=== PATIENT | female | born 1990 | race Caucasian/White ===

== ENCOUNTER 2016-08-08 22:05 | Inpatient (IN) | payer OTHER ==
--- NOTE | 2016-08-08 22:18 | HP ---
COWS - Scale Resting Pulse: 1= OK 81-100 Sweatin=Flushed/Facial Moisture Restless Observation: 1= Difficult to Sit Still Pupil Size: 1= Pupils >than Normal Bone or Joint Aches: 1= Mild Discomfort Runny Nose/ Eye Tearin= Nasal Congestion GI Upset > 30mins: 1= Stomach Cramp Tremor Observation: 1= Tremor Oral, Not Seen Yawning Observation: 1= 1-2x During Session Anxiety or Irritability: 2=Irritable/Anxious Goose Flesh Skin: 3=Piloerection COWS Score: 15 CIWA Score - CIWA Score Nausea/Vomitin-Mild Nausea/No Vomiting Muscle Tremors: 2 Anxiety: 3 Agitation: 3 Paroxysmal Sweats: 3 Orientation: 0-Oriented Tacttile Disturbances: 2-Mild Itch/Numbness/Burn Auditory Disturbances: 0-None Visual Disturbances: 0-None Headache: 3-Moderate CIWA-Ar Total Score: 17 Admission ROS BHS - HPI Chief Complaint: WITHDRAWAL SYMPTOMS Allergies/Adverse Reactions: Allergies Allergy/AdvReac Type Severity Reaction Status Date / Time No Known Allergies Allergy Verified 08/08/16 22:15 History of Present Illness: 25 Y.O. WOMAN WITH A 5 YEAR HISTORY OF ALCOHOL AND DRUG DEPENDENCE IS SEEKING DETOX. SHE REPORTS SHE WAS SOBER 16 MONTHS BUT RECENTLY RELAPSED. SHE HAS COMPLETED REHAB AND DETOX AT OTHER FACILITIES. Exam Limitations: No Limitations - Ebola screening Have you traveled outside of the country in the last 21 days: No (N) Have you had contact with anyone from an Ebola affected area: No Do you have a fever: No - Review of Systems Constitutional: Chills, Diaphoresis, Loss of Appetite EENT: reports: Tearing Respiratory: reports: Shortness of Breath (H/O ASTHMA) Cardiac: reports: Lightheadedness GI: reports: Abdominal cramping : reports: No Symptoms Reported Musculoskeletal: reports: Back Pain, Joint Pain, Muscle Weakness Integumentary: reports: No Symptoms Reported Neuro: reports: Headache, Tremors Endocrine: reports: No Symptoms Reported Hematology: reports: No Symptoms Reported Psychiatric: reports: Orientated x3, Anxious, Depressed, other (H/O OCD, ADD, ADHD) Other Systems: Reviewed and Negative Patient History - Patient Medical History Hx Anemia: No Hx Asthma: Yes (NO MEDS ) Hx Chronic Obstructive Pulmonary Disease (COPD): No Hx Cancer: No Hx Cardiac Disorders: No Hx Congestive Heart Failure: No Hx Hypertension: No Hx Hypercholesterolemia: No Hx Pacemaker: No HX Cerebrovascular Accident: No Hx Seizures: No Hx Dementia: No Hx Diabetes: No Hx Gastrointestinal Disorders: No Hx Liver Disease: No Hx Genitourinary Disorders: No Hx Sexually Transmitted Disorders: No Hx Renal Disease (ESRD): No Hx Thyroid Disease: No Hx Human Immunodeficiency Virus (HIV): No Hx Hepatitis C: No Hx Depression: Yes Hx Suicide Attempt: No Hx Bipolar Disorder: No Hx Schizophrenia: No Other Medical History: KIDNEY STONES , ADD, OCD, ADHD - Patient Surgical History Past Surgical History: Yes Hx Cardiac Surgery: No Hx Lung Surgery: No Hx Breast Surgery: No Hx Breast Biopsy: No Hx Abdominal Surgery: No Hx Appendectomy: Yes Hx Cholecystectomy: Yes Hx Genitourinary Surgery: No Hx Section: No Hx Orthopedic Surgery: No Hx Hysterectomy: No Other Surgical History: nephrolithiasis removal sx; Anesthesia Reaction: No - PPD History Previous Implant?: Yes Documented Results: Negative w/o proof PPD to be Administered?: Yes - Reproductive History Patient is a Female of Child Bearing Age (11 -55 yrs old): Yes Last Menstrual Period: 05/18/16 LMP comment: recently had an Patient : No - Smoking Cessation Smoking history: Current every day smoker Have you smoked in the past 12 months: Yes Aproximately how many cigarettes per day: 20 Hx Chewing Tobacco Use: No Initiated information on smoking cessation: Yes 'Breaking Loose' booklet given: 08/08/16 - Substance & Tx. History Hx Alcohol Use: Yes Hx Substance Use: Yes Substance Use Type: Alcohol, Heroin Hx Substance Use Treatment: Yes (DETOX AND REHAB ) - Substances Abused Heroin Route: Inhalation Frequency: Daily Amount used: 2 BUNDLES Age of first use: 20 Date of Last Use: 08/08/16 Alcohol Route: Oral Frequency: Daily Amount used: 12 PACK OF BEER Age of first use: 14 Date of Last Use: 08/08/16 Family Disease History - Family Disease History Family Disease History: Other: Father (SUBSTANCE ABUSE DISORDER ), Mother ( SUBSTANCE ABUSE DISORDER ) Admission Physical Exam BHS - Vital Signs Vital Signs: Last Vital Signs Temp Pulse Resp BP Pulse Ox 98.4 F 97 H 16 118/62 08/08/16 22:41 08/08/16 22:41 08/08/16 22:41 08/08/16 22:41 - Physical General Appearance: Yes: Tremorous, Irritable, Sweating, Anxious HEENTM: Yes: Rhinorrhea Respiratory: Yes: Chest Non-Tender, Lungs Clear, Normal Breath Sounds, No Respiratory Distress, No Accessory Muscle Use Neck: Yes: No masses,lesions,Nodules, Trachea in good position Breast: Yes: Breast Exam Deferred Cardiology: Yes: Regular Rhythm, Regular Rate Abdominal: Yes: Normal Bowel Sounds, Non Tender, Flat Genitourinary: Yes: Other (No complaints reported) Back: Yes: Normal Inspection Musculoskeletal: Yes: full range of Motion, Gait Steady, Back pain, Muscle weakness Extremities: Yes: Normal Capillary Refill, Normal Inspection, Normal Range of Motion Neurological: Yes: Fully Oriented, Normal Mood/Affect, Normal Response Integumentary: Yes: Normal Color, Dry, Warm Lymphatic: Yes: Within Normal Limits - Diagnostic (1) Alcohol dependence with uncomplicated withdrawal Current Visit: Yes Status: Chronic (2) Opioid dependence with withdrawal Current Visit: Yes Status: Chronic (3) Nicotine dependence Current Visit: Yes Status: Chronic Cleared for Admission [facility] - Detox or Rehab [facility] Level of Care: Medically Managed Detox Regimen/Protocol: Methadone/Librium [facility] Breath Alcohol Content Breath Alcohol Content: 0 Vital Signs - Vital Signs Vital Signs Refused: No Temperature: 98.4 F Temperature Source: Oral Pulse Rate: 97 Respiratory Rate: 16 Blood Pressure: 118/62 BP Location: Left Arm Blood Pressure Position: Sitting - Height Height: 5 ft 3 in - Weight Weight: 145 lb Weight Measurement Method: Standing Scale Body Mass Index (BMI): 25.7 Urine Pregancy Test - Test Device Lot Number: [id number] Expiration Date: 02/05/18 - Control Horizontal Line in Upper Control Window?: Yes - Result Urine Test Results: Negative- NO Line Present Urine Drug Screen - Test Device Lot Number: [id number] Expiration Date: 04/07/18 - Control Is Test Valid: Yes - Results Drug Screen Negative: No Urine Drug Screen Results: OPI-Opiates, OXY-Oxycodone
[2016-08-08] MEDS ORDERED: METHADONE HCL 10 MG TABLET (FOR DETOX USE ONLY) PO ONE ×2 (22:26→23:00)
[2016-08-08] MEDS ORDERED: guaiFENesin/D-METHORPHAN HB 10 ML UNIT-DOSE CUPS PO PRN (22:26)
[2016-08-08] MEDS ORDERED: MAGNESIUM CITRATE 300 ML BOTTLE PO PRN (22:26)
[2016-08-08] MEDS ORDERED: IBUPROFEN 400 MG TABLET (FP) PO PRN (22:26)
[2016-08-08] MEDS ORDERED: P-EPHED 60MG/TRIPROLIDI 2.5MG TABLET PO PRN (22:26)
[2016-08-08] MEDS ORDERED: MENTHOL/PHENOL 1 EACH UD MM PRN (22:26)
[2016-08-08] MEDS ORDERED: chlordiazePOXIDE HCL 25 MG CAPSULE PO PRN (22:26)
[2016-08-08] MEDS ORDERED: ACETAMINOPHEN 325 MG TABLET (FP) PO PRN (22:26)
[2016-08-08] MEDS ORDERED: LOPERAMIDE HCL 2 MG CAPSULE PO PRN (22:26)
[2016-08-08] MEDS ORDERED: MAG HYDROX/AL HYDROX/SIMETH 30 ML UNIT-DOSE CUP PO PRN (22:26)
[2016-08-08] MEDS ORDERED: MAGNESIUM HYDROX 2400MG/30ML ORAL SUSPENSION 30 ML CUP PO PRN (22:26)
[2016-08-08] MEDS ORDERED: chlordiazePOXIDE HCL 25 MG CAPSULE PO ONE (22:31)
[2016-08-08] MEDS ORDERED: NICOTINE POLACRILEX 2 MG GUM BUC PRN (22:33)
[2016-08-08] MEDS ORDERED: hydrOXYzine PAMOATE 50 MG CAPSULE (FP) PO PRN (22:33)
[2016-08-08 22:36] VITALS: BMI 25.7
[2016-08-08] MEDS: chlordiazePOXIDE HCL 25 MG CAPSULE PO SCH (23:50)
[2016-08-08] MEDS: diphenhydrAMINE HCL 50 MG CAPSULE PO PRN (23:56)
[2016-08-09] MEDS: chlordiazePOXIDE HCL 25 MG CAPSULE PO SCH ×4 (06:26→22:32)
[2016-08-09 09:43] LABS: MCH 32.2 pg (25.7-33.7); MEAN CELL VOLUME 94.5 fl (80-96); MEAN PLT VOLUME 9.9 fl (7.5-11.1); PLATELET COUNT 193 K/MM3 (134-434); RDW 12.9 % (11.6-15.6); WHITE BLOOD COUNT 7.9 K/mm3 (4.0-10.0)
[2016-08-09] MEDS ORDERED: METHADONE HCL 10 MG TABLET (FOR DETOX USE ONLY) PO SCH (10:00)
[2016-08-09 10:04] LABS: ALBUMIN 3.2 g/dl (3.4-5.0); ALK PHOS 64 U/L (45-117); ANION GAP 10 (8-16); BILIRUBIN,TOTAL 0.2 mg/dL (0.2-1.0); CALCIUM 8.2 mg/dL (8.5-10.1); CO2 25 mmol/L (21-32); CREATININE 0.7 mg/dL (0.55-1.02); GLUCOSE,RANDOM 84 mg/dL (74-106); SGOT/AST 12 U/L (15-37); SGPT/ALT 18 U/L (12-78); TOT PROT 6.1 g/dl (6.4-8.2)
[2016-08-09 10:11] LABS: HIV 1 & 2 AB NEGATIVE; HIV 1 AGp24 NEGATIVE
[2016-08-09] MEDS: PRENATAL VITAMINS W/ FOLIC ACID TABLET (FP) PO SCH (10:11)
[2016-08-09] MEDS: NICOTINE 21 MG/24 HOURS TOPICAL PATCH TD SCH (10:12)
--- NOTE | 2016-08-09 10:25 | PN ---
S CIWA - CIWA Score Nausea/Vomitin-No Nausea/No Vomiting Muscle Tremors: 4-Moderate,w/Arms Extend Anxiety: 3 Agitation: 3 Paroxysmal Sweats: 3 Orientation: 0-Oriented Tacttile Disturbances: 0-None Auditory Disturbances: 0-None Visual Disturbances: 0-None Headache: 0-None Present CIWA-Ar Total Score: 13 BHS COWS - Scale Resting Pulse: 0= CT 80 or Below Sweatin=Flushed/Facial Moisture Restless Observation: 1= Difficult to Sit Still Pupil Size: 0= Normal to Room Light Bone or Joint Aches: 2= Severe Diffuse Aches Runny Nose/ Eye Tearin= Runny Nose/Eyes GI Upset > 30mins: 2= Nausea/Diarrhea Tremor Observation of Outstretched Hands: 2= Slight Tremor Visible Yawning Observation: 2= >3x During Session Anxiety or Irritability: 2=Irritable/Anxious Goose Flesh Skin: 0=Smooth Skin COWS Score: 15 S Progress Note (SOAP) Subjective: sweats shakes interrupted sleep irritable body aches Objective: 08/09/16 10:19 Vital Signs Temperature 98.2 F 08/09/16 10:00 Pulse Rate 80 08/09/16 10:00 Respiratory Rate 16 08/09/16 10:00 Blood Pressure 105/56 08/09/16 10:00 O2 Sat by Pulse Oximetry (%) Laboratory Tests 08/09/16 08/09/16 08/09/16 07:00 07:00 07:00 WBC 7.9 RBC 4.20 Hgb 13.5 Hct 39.7 MCV 94.5 MCHC 34.0 RDW 12.9 Plt Count 193 MPV 9.9 Sodium 140 Potassium 3.9 Chloride 105 Carbon Dioxide 25 Anion Gap 10 BUN 14 Creatinine 0.7 Creat Clearance w eGFR > 60 Random Glucose 84 Calcium 8.2 L Total Bilirubin 0.2 AST 12 L ALT 18 Alkaline Phosphatase 64 Total Protein 6.1 L Albumin 3.2 L HIV 1&2 Antibody Screen Negative HIV P24 Antigen Negative awake/alert lying in bed no acute distress Assessment: 08/09/16 10:20 withdrawal sx Plan: continue detox increase fluids labs pending
--- NOTE | 2016-08-09 12:53 | CONSULT ---
[facility] Psychiatric Consult - Data Date of interview: 08/09/16 Admission source: [facility] Identifying data: First admission to [facility] for this 25 y/o female seeking detox treatment for alcohol and heroin dependence.Patient is , a mother of one,homeless,unemployed and living without any source of income. Substance Abuse History: - Smoking Cessation. Smoking history: Current every day smoker. Have you smoked in the past 12 months: Yes. Aproximately how many cigarettes per day: 20. Hx Chewing Tobacco Use: No. Initiated information on smoking cessation: Yes. 'Breaking Loose' booklet given: 08/08/16. - Substance & Tx. History. Hx Alcohol Use: Yes. Hx Substance Use: Yes. Substance Use Type : Alcohol, Heroin. Hx Substance Use Treatment: Yes (DETOX AND REHAB ). - Substances Abused. Heroin. Route: Inhalation. Frequency: Daily. Amount used: 2 BUNDLES. Age of first use: 20. Date of Last Use: 08/08/16. Alcohol. Route: Oral. Frequency: Daily. Amount used: 12 PACK OF BEER. Age of first use: 14. Date of Last Use: 08/08/16. Confirmed by patient. Medical History: Bronchial asthma.History of appendectomy,cholecystectomy and nephrolithiasis. Psychiatric History: No history of psychiatric hospitalizations.Diagnosed with MDD,OCD,ADD and Anxiety Disorder.Patient is prescribed vyvanse,wellbutrin, trazodone and fluvoxamine.Ms Crespo sees a psychiatrist at the [facility] in [place], [place].She denies history of suicide attempts. Physical/Sexual Abuse/Trauma History: Patient denies. Additional Comment: Urine Drug Screen Results: OPI-Opiates, OXY-Oxycodone.Noted. Mental Status Exam - Mental Status Exam Alert and Oriented to: Time, Place, Person Cognitive Function: Good Patient Appearance: Well Groomed Mood: Withdrawn, Anxious, Apprehensive Affect: Mood Congruent Patient Behavior: Fatigued, Appropriate, Cooperative Speech Pattern: Clear Voice Loudness: Normal Thought Process: Goal Oriented Thought Disorder: Not Present Hallucinations: Denies Suicidal Ideation: Denies Homicidal Ideation: Denies Insight/Judgement: Poor Sleep: Poorly, Difficulty falling asleep Appetite: Good Muscle strength/Tone: Normal Gait/Station: Normal Psychiatric Findings - Problem List ([place] 1, 2,3) (1) Alcohol dependence with uncomplicated withdrawal Current Visit: Yes Status: Acute (2) Opioid dependence with withdrawal Current Visit: Yes Status: Acute (3) Nicotine dependence Current Visit: Yes Status: Acute (4) Substance induced mood disorder Current Visit: Yes Status: Acute (5) MDD (major depressive disorder) Current Visit: Yes Status: Acute Comment: Historical diagnosis. (6) OCD (obsessive compulsive disorder) Current Visit: Yes Status: Chronic Comment: Self-report. (7) ADD (attention deficit disorder) Current Visit: Yes Status: Chronic Comment: Self-report. (8) Insomnia Current Visit: Yes Status: Acute - Initial Treatment Plan Initial Treatment Plan: Psychoeducation.Detoxification.Medications reconciled.Wellbutrin XL 300 mg po daily + trazodone 100 mg po hs. Side effects/ benefits of both medications are discussed with the patient (including risk for seizures).She agrees with this plan of care.Observation.
[2016-08-09] MEDS ORDERED: traZODone HCL 100 MG TABLET (FP) PO SCH (22:00)
[2016-08-09] MEDS ORDERED: THIAMINE HCL 100 MG TABLET (FP) PO SCH (22:00)
[2016-08-09] MEDS: diphenhydrAMINE HCL 50 MG CAPSULE PO PRN (22:32)
[2016-08-09 23:09] LABS: URINE APPEARANCE SLCLOUDY; URINE BILIRUBIN NEGATIVE (NEGATIVE); URINE BLOOD NEGATIVE (NEGATIVE); URINE COLOR YELLOW; URINE GLUCOSE (UA) NEGATIVE (NEGATIVE); URINE KETONE NEGATIVE (NEGATIVE); URINE NITRITE POSITIVE (NEGATIVE); URINE PROTEIN NEGATIVE (NEGATIVE); URINE UROBILINOGEN NEGATIVE E.U./dl (0.2-1.0)
[2016-08-09 23:10] LABS: URINE LEUK ESTERASE TRACE (NEGATIVE)
[2016-08-09 23:23] LABS: URINE BACTERIA MANY /hpf (NONE SEEN); URINE MUCUS MODERATE; URINE RBC 3 /hpf (0-3); URINE WBC 19 /hpf (3-5)
--- NOTE | 2016-08-10 06:30 | PN ---
[facility] Progress Note Note: ASKED TO SEE PT FOR FALL. PT REPORTS "BLACKING OUT" AND AWAKENING ON THE FLOOR. STATES SHE HIT HER FRONTAL LOBE SHE HAD PAIN THERE WHICH HAS NOW DISSIPATED. DENIES KRUEGER/ VISUAL CHANGES/ SOB/C.P./ DIZZINESS. SEEN LYING IN BED AROUSABLE NO VISIBLE INJURIES NOTED REFUSED NEURO EXAM. VS 99/60 72 18 T98.4 BGM 90 S/P UNWITNESSED FALL FALL PROTOCOL #[address] ER FOR CT SCAN OF HEAD TYLENOL ORDERED FOR PAIN REPORT GIVEN TO DR. CHEW.
[2016-08-10 06:31] VITALS: BP 105/69; PULSE 79; TEMP 97.3
[2016-08-10] MEDS: chlordiazePOXIDE HCL 25 MG CAPSULE PO SCH ×2 (07:46→11:11)
[2016-08-10] MEDS ORDERED: METHADONE HCL 5 MG TABLET (FOR DETOX USE ONLY) PO SCH (10:00)
[2016-08-10] MEDS: NICOTINE 21 MG/24 HOURS TOPICAL PATCH TD SCH (11:10)
[2016-08-10] MEDS: PRENATAL VITAMINS W/ FOLIC ACID TABLET (FP) PO SCH (11:11)
--- NOTE | 2016-08-10 11:22 | PN ---
Teaching Attending Note Name of Resident: Kaiden Valdovinos This note was intended for Observation Status and not [facility]
[2016-08-10] MEDS ORDERED: CEFTRIAXONE 1 GM in DEXTROSE 5%-WATER - 50 ML IVPB ONE (11:23)
--- NOTE | 2016-08-10 22:49 | EKG ---
Test Reason : Blood Pressure : / mmHG Vent. Rate : 077 BPM Atrial Rate : 077 BPM P-R Int : 168 ms QRS Dur : 092 ms QT Int : 398 ms P-R-T Axes : 052 059 047 degrees QTc Int : 450 ms NORMAL SINUS RHYTHM NORMAL ECG NO PREVIOUS ECGS AVAILABLE Confirmed by FIGUEROA RAMIREZ MD ([id number]) on 08/10/2016 10:49:06 PM Referred By: Confirmed By:FIGUEROA RAMIREZ MD
[2016-08-10] MEDS ORDERED: chlordiazePOXIDE 5 MG CAPSULE PO SCH (23:00)
[2016-08-11] MEDS ORDERED: chlordiazePOXIDE HCL 10 MG CAPSULE PO SCH (23:00)
--- NOTE | 2016-10-10 19:24 | DS ---
[facility] Detox Discharge Summary Admission Date: 08/08/16 Discharge Date: 08/10/16 - History Present History: Alcohol Dependence, Opioid Dependence Pertinent Past History: ADD Insomnia - Physical Exam Results Vital Signs: Vital Signs Temperature 97.3 F L 08/10/16 06:31 Pulse Rate 79 08/10/16 06:31 Respiratory Rate 18 08/10/16 06:31 Blood Pressure 105/69 08/10/16 06:31 O2 Sat by Pulse Oximetry (%) Pertinent Admission Physical Exam Findings: Withdrawal sx. Laboratory Tests 08/08/16 08/09/16 08/09/16 07:00 07:00 07:00 WBC 7.9 RBC 4.20 Hgb 13.5 Hct 39.7 MCV 94.5 MCHC 34.0 RDW 12.9 Plt Count 193 MPV 9.9 Sodium 140 Potassium 3.9 Chloride 105 Carbon Dioxide 25 Anion Gap 10 BUN 14 Creatinine 0.7 Creat Clearance w eGFR > 60 POC Glucometer Random Glucose 84 Calcium 8.2 L Total Bilirubin 0.2 AST 12 L ALT 18 Alkaline Phosphatase 64 Total Protein 6.1 L Albumin 3.2 L Urine Color Urine Appearance Urine pH Ur Specific [place] Urine Protein Urine Glucose (UA) Urine Ketones Urine Blood Urine Nitrite Urine Bilirubin Urine Urobilinogen Ur Leukocyte Esterase Urine RBC Urine WBC Ur Epithelial Cells Urine Bacteria Urine Mucus RPR Titer Hepatitis C Antibody <0.1 HIV 1&2 Antibody Screen HIV P24 Antigen 08/09/16 08/09/16 08/09/16 07:00 07:00 21:30 WBC RBC Hgb Hct MCV MCHC RDW Plt Count MPV Sodium Potassium Chloride Carbon Dioxide Anion Gap BUN Creatinine Creat Clearance w eGFR POC Glucometer Random Glucose Calcium Total Bilirubin AST ALT Alkaline Phosphatase Total Protein Albumin Urine Color Yellow Urine Appearance Slcloudy Urine pH 6.0 Ur Specific [place] 1.021 Urine Protein Negative Urine Glucose (UA) Negative Urine Ketones Negative Urine Blood Negative Urine Nitrite Positive Urine Bilirubin Negative Urine Urobilinogen Negative Ur Leukocyte Esterase Trace H Urine RBC 3 Urine WBC 19 Ur Epithelial Cells Few Urine Bacteria Many Urine Mucus Moderate RPR Titer Nonreactive Hepatitis C Antibody HIV 1&2 Antibody Screen Negative HIV P24 Antigen Negative labs noted - Treatment Patient has Accepted a Rehab Referral to: [facility] [place] [facility]. - Medication Discharge Medications: Ambulatory Orders Trazodone HCl [Desyrel -] 200 mg PO HS 08/09/16 Fluvoxamine Maleate 50 mg PO AM 08/10/16 Fluvoxamine Maleate 100 mg PO HS 08/10/16 Cephalexin Monohydrate [Keflex -] 500 mg PO Q6H #24 capsule 08/13/16 - Diagnosis (1) Alcohol dependence with uncomplicated withdrawal Status: Acute (2) Opioid dependence with withdrawal Status: Acute (3) ADD (attention deficit disorder) Status: Chronic (4) MDD (major depressive disorder) Status: Chronic (5) OCD (obsessive compulsive disorder) Status: Chronic - AMA Did Patient Leave Against Medical Advice: No (Transferred to ED for evaluation)
== END 2016-08-10 12:50 | disposition short-term general hospital (02) | DRG 773 ==
LOC: YASAS 22:05 → Y6N 22:16
PROVIDERS: ADMIT Internal Medicine; ATTEND Internal Medicine
PROC: HZ2ZZZZ Detoxification Services for Substance Abuse Treatment (ICD-10-PCS; principal; 2016-08-10)
DX: F11.23 Opioid dependence with withdrawal (principal); F10.230 Alcohol dependence with withdrawal, uncomplicated; F17.210 Nicotine dependence, cigarettes, uncomplicated; F19.24 Other psychoactive substance dependence with psychoactive substance-induced mood disorder; F33.9 Major depressive disorder, recurrent, unspecified; G47.00 Insomnia, unspecified; F90.9 Attention-deficit hyperactivity disorder, unspecified type; F42.9 Obsessive-compulsive disorder, unspecified; S09.8XXA Other specified injuries of head, initial encounter; W18.39XA Other fall on same level, initial encounter; Y93.89 Activity, other specified; Y92.230 Patient room in hospital as the place of occurrence of the external cause
CPT/HCPCS: 36415; 80053; 81003; 81015; 85027; 86593; 87389; 93005; 93010

== ENCOUNTER 2016-08-10 07:25 | Observation (INO) | payer OTHER ==
[2016-08-10 07:49] VITALS: BMI 24.7
--- NOTE | 2016-08-10 08:17 | PDOC ---
History of Present Illness - General History Source: Patient, EMS, Old Records Exam Limitations: No Limitations <DougieJose De Jesusloren Enciso - Last Filed: 08/10/16 11:10> - History of Present Illness Initial Comments: 08/10/16 08:28 - General History Source: Patient, EMS, Old Records Exam Limitations: No Limitations - History of Present Illness Initial Comments: 08/10/16 08:17 The patient is a 25 year old female brought via EMS, with a significant past medical history of asthma and a 5 year history of alcohol and opiod dependence, who presents to the emergency department after a syncopal episode earlier this morning. The patient was recently admitted to [facility] detox on 08/08/2016 and was detox with methodone and librium. She reports that she was on the medicine line this am at [facility], when she became dizzy and lost consciousness, and fell to the ground, striking the R forhead and R parietal area.. She notes that she was regained consciousness almost immediately. She states that she hit her head when she fell. On presentation there is no gross visible head injury. She reports back and joint stiffness, which she had prior to the fall. She denies neck pain. The patient denies chest pain, shortness of breath and headache. Denies fever, chills, nausea, vomit, diarrhea and constipation. Allergies: None Past surgical history: None reported Social history: Alcohol use and heroin use. <Jose De Jesus Constantino - Last Filed: 08/10/16 08:18> <Adina Jones - Last Filed: 08/11/16 08:15> - General Chief Complaint: Injury Stated Complaint: FALL Time Seen by Provider: 08/10/16 07:59 Past History <Jose De Jesus Constantino - Last Filed: 08/10/16 11:10> - Past Medical History Anemia: No Asthma: Yes Cancer: No Cardiac Disorders: No CVA: No COPD: No CHF: No Dementia: No Diabetes: No GI Disorders: No Disorders: No HTN: No Hypercholesterolemia: No Kidney Stones: Yes (NEPHROLITHIASIS 2004) Liver Disease: No Suicide Attempt (Hx): No Seizures: No Thyroid Disease: No Other medical history: heroin and alcohol abuse - Surgical History Abdominal Surgery: No Appendectomy: Yes Cardiac Surgery: No Cholecystectomy: Yes Lung Surgery: No Neurologic Surgery: No Orthopedic Surgery: No - Psycho/Social/Smoking Cessation Hx Anxiety: No Suicidal Ideation: No Smoking History: Current every day smoker Have you smoked in the past 12 months: Yes Number of Cigarettes Smoked Daily: 20 Information on smoking cessation initiated: No 'Breaking Loose' booklet given: 08/08/16 Hx Alcohol Use: Yes (12 beer daily) Drug/Substance Use Hx: Yes (heroin) Substance Use Type: Alcohol, Heroin Hx Substance Use Treatment: Yes <Adina Jones - Last Filed: 08/11/16 08:15> - Past Medical History Allergies/Adverse Reactions: Allergies Allergy/AdvReac Type Severity Reaction Status Date / Time No Known Allergies Allergy Verified 08/10/16 07:49 Home Medications: Ambulatory Orders Bupropion HCl [Wellbutrin Xl] 300 mg PO DAILY #30 tab.er.24h 08/09/16 Trazodone HCl [Desyrel -] 200 mg PO HS 08/09/16 Fluvoxamine Maleate 50 mg PO AM 08/10/16 Fluvoxamine Maleate 100 mg PO HS 08/10/16 Review of Systems - Review of Systems Able to Perform ROS?: Yes Comments:: 08/10/16 08:18 12 point review of systems is as per history of present illness and otherwise negative ROS All Other Systems: Reviewed and Negative <Jose De Jesus Constantino - Last Filed: 08/10/16 11:10> *Physical Exam - Vital Signs Last Vital Signs Temp Pulse Resp BP Pulse Ox 98.1 F 78 18 97/62 100 08/10/16 07:25 08/10/16 07:25 08/10/16 07:25 08/10/16 07:25 08/10/16 07:25 <Jose De Jesus Constantino - Last Filed: 08/10/16 11:10> - Vital Signs Last Vital Signs Temp Pulse Resp BP Pulse Ox 98.1 F 78 18 97/62 100 08/10/16 07:25 08/10/16 07:25 08/10/16 07:25 08/10/16 07:25 08/10/16 07:25 - Physical Exam Comments: 08/10/16 08:28 Physical exam Last Vital Signs Temp Pulse Resp BP Pulse Ox 98.1 F 78 18 97/62 100 08/10/16 07:25 08/10/16 07:25 08/10/16 07:25 08/10/16 07:25 08/10/16 07:25 GENERAL: The patient is awake, alert, and fully oriented, and in no apparent distress. HEAD: Normal with no signs of trauma. No bruise or ecchymosis is seen in the right forehead/parietal area, where patient banged her head EYES: Pupils equal, round and reactive to light, extraocular movements intact, sclera anicteric, conjunctiva are normal. ENT: Moist mucous membranes. NECK: Normal range of motion, supple There is mild diffuse C-spine tenderness without point tenderness LUNGS: Breath sounds equal, clear to auscultation bilaterally. No wheezes, and no crackles. HEART: Regular rate and rhythm, normal S1 and S2 without murmur, rub or gallop. ABDOMEN: Soft, nontender, normoactive bowel sounds. No guarding, no rebound. No masses appreciated. EXTREMITIES: Normal range of motion, no edema. No clubbing or cyanosis. No cords, erythema, or tenderness. NEUROLOGICAL: Cranial nerves II through XII grossly intact. Normal speech, motor 5 out of 5 and equal in the upper and lower extremities are laterally, alert and oriented 3, grossly nonfocal neurologic exam PSYCH: Normal mood, normal affect. SKIN: Warm, Dry, <Adina Jones - Last Filed: 08/11/16 08:15> ED Treatment Course - LABORATORY CBC & Chemistry Diagram: 08/10/16 08:33 08/10/16 08:33 - RADIOLOGY Radiograph Interpretation: 08/10/16 11:[address] Reviewed by: Dr. Cassandra Topete Impression: No evidence of a focal intracranial lesion or hemorrhage is seen. Cervical CT Reviewed by: Dr. Cassandra Topete Impression: The alignment is satisfactory. No gross fracture or subluxation is seen. <Jose De Jesus Constantino - Last Filed: 08/10/16 11:10> - LABORATORY CBC & Chemistry Diagram: 08/10/16 08:33 08/10/16 08:33 <Adina Jones - Last Filed: 08/11/16 08:15> Medical Decision Making - Medical Decision Making 08/10/16 09:16 EKG Normal sinus rhythm 84, normal axis Normal AV and IV conduction time Normal QTC Normal EKG 08/10/16 10:42 Laboratory Results - last 24 hr 08/10/16 08/10/16 08/10/16 08:33 08:33 09:34 WBC 8.0 RBC 4.40 Hgb 14.0 Hct 41.5 MCV 94.3 MCHC 33.8 RDW 13.2 Plt Count 190 MPV 9.1 Sodium 141 Potassium 4.1 Chloride 106 Carbon Dioxide 26 Anion Gap 9 BUN 14 Creatinine 0.7 Creat Clearance w eGFR > 60 Random Glucose 78 Calcium 8.4 L Total Bilirubin 0.4 D AST 14 L ALT 17 Alkaline Phosphatase 61 Creatine Kinase 62 Troponin I < 0.02 Total Protein 6.3 L Albumin 3.3 L Urine Color Yellow Urine Appearance Cloudy Urine pH 5.0 Ur Specific [place] 1.023 Urine Protein 1+ H Urine Glucose (UA) Negative Urine Ketones Negative Urine Blood 3+ H Urine Nitrite Positive Urine Bilirubin Negative Urine Urobilinogen Negative Ur Leukocyte Esterase 1+ H Urine HCG, Qual 08/10/16 09:34 WBC RBC Hgb Hct MCV MCHC RDW Plt Count MPV Sodium Potassium Chloride Carbon Dioxide Anion Gap BUN Creatinine Creat Clearance w eGFR Random Glucose Calcium Total Bilirubin AST ALT Alkaline Phosphatase Creatine Kinase Troponin I Total Protein Albumin Urine Color Urine Appearance Urine pH Ur Specific [place] Urine Protein Urine Glucose (UA) Urine Ketones Urine Blood Urine Nitrite Urine Bilirubin Urine Urobilinogen Ur Leukocyte Esterase Urine HCG, Qual Negative 08/10/16 11:05 CT scan of the head without-NAD CT scan of the C-spine-NAD Syncopal episode without high risk features or seizure 08/10/16 11:30 UA consistent with UTI-Rocephin started Case discussed with hospitalist-will admit Hospitalist at bedside <Adina Jones - Last Filed: 08/11/16 08:15> *DC/Admit/Observation/Transfer - Attestations Scribe Attestion: 08/10/16 08:18 Documentation prepared by Jose De Jesus Constantino, acting as medical insurance biller for Adina Jones MD <Jose De Jesus Constantino - Last Filed: 08/10/16 11:10> - Discharge Dispostion Admit: Yes <Adina Jones - Last Filed: 08/11/16 08:15> Diagnosis at time of Disposition: Syncope and collapse, Closed head injury
[2016-08-10 08:54] LABS: MCH 31.9 pg (25.7-33.7); MCHC 33.8 g/dl (32.0-36.0); MEAN CELL VOLUME 94.3 fl (80-96); MEAN PLT VOLUME 9.1 fl (7.5-11.1); PLATELET COUNT 190 K/MM3 (134-434); RDW 13.2 % (11.6-15.6)
[2016-08-10 09:21] LABS: ALBUMIN 3.3 g/dl (3.4-5.0); ANION GAP 9 (8-16); BILIRUBIN,TOTAL 0.4 mg/dL (0.2-1.0); CALCIUM 8.4 mg/dL (8.5-10.1); CO2 26 mmol/L (21-32); CREATININE 0.7 mg/dL (0.55-1.02); GLUCOSE,RANDOM 78 mg/dL (74-106); SGOT/AST 14 U/L (15-37); SGPT/ALT 17 U/L (12-78); TOT PROT 6.3 g/dl (6.4-8.2)
[2016-08-10 09:23] LABS: ALK PHOS 61 U/L (45-117); TROPONIN I < 0.02 ng/ml (0.00-0.05)
[2016-08-10 09:54] LABS: URINE APPEARANCE CLOUDY; URINE BILIRUBIN NEGATIVE (NEGATIVE); URINE COLOR YELLOW; URINE GLUCOSE (UA) NEGATIVE (NEGATIVE); URINE KETONE NEGATIVE (NEGATIVE); URINE NITRITE POSITIVE (NEGATIVE); URINE UROBILINOGEN NEGATIVE E.U./dl (0.2-1.0)
[2016-08-10 09:56] LABS: URINE BLOOD 3+ (NEGATIVE); URINE LEUK ESTERASE 1+ (NEGATIVE); URINE PROTEIN 1+ (NEGATIVE)
[2016-08-10 11:15] LABS: URINE BACTERIA MANY /hpf (NONE SEEN); URINE MUCUS MANY; URINE RBC 1183 /hpf (0-3); URINE WBC 39 /hpf (3-5)
--- NOTE | 2016-08-10 12:12 | PN ---
[id number] the resident's note and discussed the case with the resident. I agree with the resident's findings and plan as documented. SUBJECTIVE: The patient is a 25 year old female with a significant past medical history of polysubstance abuse (intranasal heroin, alcohol), cigarette smoking, depression , OCD, ADHD and asthma who presented to the emergency department after a witnessed loss of consciousness while at the [facility] detox program. There was left frontoparietal head trauma. There was no noted seizure activity, incontinence or tongue trauma. She denies preceeding chest pain, palpitations, dyspnea, focal weakness or paresthesias. Other than a mild headache, she is asymptomatic. She does complain of mild recent urinary frequency and dysuria. She denies fever or back pain. OBJECTIVE: Vitals noted No c-spine tenderness or bony tenderness elsewhere No murmurs Dry mucous membranes EKG without significant abnormality CT head and C-spine reports noted Labs noted ASSESSMENT AND PLAN: The patient is a 25 year old female with a significant past medical history and pre-hospital course as above, being placed on observation for further evaluation or a loss of consciousness. -Loss of consciousness Seems syncopal No features of high risk syncope I suspect neurocardiogenic / vaso-vagal syncope She does seem volume deplete Will check orthostatic vital signs Will ASHA Will rehydrate Will obtain CXR I see no reason for Echo at this point -UTI Will send Ucx Will give one dose of ceftriaxone and then convert to oral Polysubstance abuse Will continue Methadone (dose was 20mg daily at [facility]) and Librium for detox Detailed plan as per resident Anticipate discharge tomorrow
[2016-08-10] MEDS ORDERED: METHADONE HCL 10 MG TABLET (FOR DETOX USE ONLY) PO ONE ×2 (12:25→16:49)
[2016-08-10] MEDS ORDERED: SODIUM CHLORIDE 0.45% 1,000 ML IV SCH (12:30)
[2016-08-10] MEDS ORDERED: CEFTRIAXONE 1 GM in DEXTROSE 5%-WATER - 50 ML IVPB ONE (12:30)
[2016-08-10] MEDS ORDERED: SODIUM CHLORIDE 1,000 ML IV STA (12:35)
--- NOTE | 2016-08-10 12:40 | HP ---
CHIEF COMPLAINT:Passed out at Detox PCP:None HISTORY OF PRESENT ILLNESS: 25F with PMH of asthma alcohol abuse OCD Anxiety and depression presents to the ED from [facility] after loss of consciousness this morning. Per the patient she was in her usual state of health until this morning when she was standing in the medicine line at the pharmacy at detox when she just had an abrupt loss of consciousness. She didn't have any preceding symptoms. She denies nausea vomiting fevers chills chest pain or shortness of breath. She states she has been eating and drinking fine. She does endorse some burning on urination. She was clean and sober for 16 months and recently relapsed. ER course was notable for: Labs Head CT C spine CT EKG Recent Travel:Denies PAST MEDICAL HISTORY:As above PAST SURGICAL HISTORY: Appendectomy Cholecystectomy Social History: Smoking:Active cigarette smoker Alcohol:Alcohol abuse Drugs: Heroin abuse by snorting denies IVDA Family History: Allergies No Known Allergies Allergy (Verified 08/10/16 07:49) HOME MEDICATIONS: Home Medications Medication Instructions Recorded Bupropion HCl [Wellbutrin Xl] 300 mg PO DAILY #30 tab.er.24h 08/09/16 Trazodone HCl [Desyrel -] 200 mg PO HS 08/09/16 Fluvoxamine Maleate 50 mg PO AM 08/10/16 Fluvoxamine Maleate 100 mg PO HS 08/10/16 REVIEW OF SYSTEMS CONSTITUTIONAL: Absent: fever, chills, diaphoresis, generalized weakness, malaise, loss of appetite, weight change HEENT: Absent: rhinorrhea, nasal congestion, throat pain, throat swelling, difficulty swallowing, mouth swelling, ear pain, eye pain, visual changes CARDIOVASCULAR: Absent: chest pain, palpitations, irregular heart rate, lightheadedness, peripheral edema Present: syncope RESPIRATORY: Absent: cough, shortness of breath, dyspnea with exertion, orthopnea, wheezing, stridor, hemoptysis GASTROINTESTINAL: Absent: abdominal pain, abdominal distension, nausea, vomiting, diarrhea, constipation, melena, hematochezia GENITOURINARY: Absent: frequency, urgency, hesitancy, hematuria, flank pain, genital pain Present: dysuria MUSCULOSKELETAL: Absent: myalgia, arthralgia, joint swelling, back pain, neck pain SKIN: Absent: rash, itching, pallor HEMATOLOGIC/IMMUNOLOGIC: Absent: easy bleeding, easy bruising, lymphadenopathy, frequent infections ENDOCRINE: Absent: unexplained weight gain, unexplained weight loss, heat intolerance, cold intolerance NEUROLOGIC: Absent: headache, focal weakness or paresthesias, dizziness, unsteady gait, seizure, mental status changes, bladder or bowel incontinence PSYCHIATRIC: Absent: suicidal or homicidal ideation, hallucinations. Present: anxiety, depression PHYSICAL EXAMINATION GENERAL: Awake, alert, and fully oriented, in no acute distress. HEAD: Normal with no signs of trauma. EYES: Pupils equal, round and reactive to light, extraocular movements intact, sclera anicteric, conjunctiva clear. EARS, NOSE, THROAT: Ears normal, nares patent, oropharynx clear without exudates. slightly dry mucous membranes. NECK: Normal range of motion, no JVD, or masses. LUNGS: Breath sounds equal, clear to auscultation bilaterally. No wheezes, and no crackles. No accessory muscle use. HEART: Regular rate and rhythm, normal S1 and S2 without murmur, rub or gallop. ABDOMEN: Soft, nontender, not distended, normoactive bowel sounds, no guarding, no rebound, no masses. No hepatomegaly or splenomegaly. MUSCULOSKELETAL: Normal range of motion at all joints. No bony deformities or tenderness. No CVA tenderness. UPPER EXTREMITIES: warm, well-perfused. No cyanosis. No clubbing. No peripheral edema. LOWER EXTREMITIES: warm, well-perfused. No calf tenderness. No peripheral edema. NEUROLOGICAL: Cranial nerves II-XII intact. Normal speech. global muscle strength 5/5 PSYCHIATRIC: Cooperative. Good eye contact. SKIN: Warm, dry, normal turgor, no rashes or lesions noted, normal capillary refill. EKG: NSR @ [address] head/CT C spine negative for any acute pathology Home Medication List Medication Instructions Recorded Confirmed Type Trazodone HCl [Desyrel -] 200 mg PO HS 08/09/16 08/10/16 History Fluvoxamine Maleate 50 mg PO AM 08/10/16 08/10/16 History Fluvoxamine Maleate 100 mg PO HS 08/10/16 08/10/16 History Active Medications Generic Name Dose Route Start Last Admin Trade Name Freq PRN Reason Stop Dose Admin Bupropion HCl 300 mg 08/11/16 10:00 Wellbutrin Xl - PO DAILY CAMRON Cephalexin HCl 500 mg 08/11/16 06:00 Keflex - PO Q6HPO CAMRON Chlordiazepoxide HCl 15 mg 08/10/16 23:00 Librium - PO 08/11/16 17:01 P2T-KNK CAMRON Chlordiazepoxide HCl 25 mg 08/10/16 17:00 Librium - PO 08/11/16 16:59 ONCE@1700 CAMRON Fluvoxamine Maleate 50 mg 08/11/16 07:00 Luvox - PO AM CAMRON Ceftriaxone Sodium 1 gm/ 50 mls @ 100 mls/hr 08/10/16 12:30 Dextrose IVPB 08/10/16 12:59 ONCE ONE Sodium Chloride 1,000 mls @ 75 mls/hr 08/10/16 12:30 1/2 Normal Saline IV ASDIR CAMRON Sodium Chloride 1,000 mls @ 1,000 mls/hr 08/10/16 12:35 Normal Saline - IV 08/10/16 13:34 ASDIR STA Methadone HCl 15 mg 08/10/16 12:45 Dolophine - PO 08/11/16 10:01 DAILY CAMRON Non-Formulary Medication 100 mg 08/10/16 22:00 Fluvoxamine Maleate [Fluvoxamine Maleate] PO HS CAMRON Trazodone HCl 200 mg 08/10/16 22:00 Desyrel - PO HS CAMRON ASSESSMENT/PLAN: 25F with history of asthma and polysubstance abuse presents to the ED from [facility] detox after a syncopal event. Syncope: neurocardiogenic vs vaso-vagal in this young patient with no significant neurocardiac history. No high risk symptoms. Place on Telemetry/Observation cardiac monitoring Needs to rule out CT-will trend Cardiac enzymes Give 1 liter normal saline bolus then place on 1/2 NS @ 75ml/hr Orthostatics No cardiology consult or Echo warranted at this time Polysubstance abuse: alcoholism and opioid addiction Restart methadone and librium taper / Quan consulted to go back to [facility] likely tomorrow Urinary tract infection: positive UA with symptoms Give Rocephin X 1 now start keflex tomorrow Psych: OCD/Anxiety/Depression Restart Fluvoxamine Restart Wellbutrin Restart Trazadone FEN: 1 liter NS bolus then 1/2 NS @ 75ml/hr no electrolyte issues regular diet PPx: SCDs no GI PPx criteria met no PT consult needed Case discussed with Dr. Ness Visit type - Emergency Visit Emergency Visit: Yes ED Registration Date: 08/10/16 Care time: The patient presented to the Emergency Department on the above date and was hospitalized for further evaluation of their emergent condition. - New Patient This patient is new to me today: Yes Date on this admission: 08/10/16 - Critical Care Critical Care patient: No
[2016-08-10] MEDS ORDERED: METHADONE HCL 10 MG TABLET (FOR DETOX USE ONLY) PO SCH (12:45)
--- NOTE | 2016-08-10 14:46 | PN ---
[facility] Progress Note (SOAP) Subjective: Pt. was sent to ED because of LOC witnessed by staff at [facility]. Objective: 08/10/16 14:43 Vital Signs - 8 hr 08/10/16 08/10/16 08/10/16 07:25 09:08 13:07 Temperature 98.1 F 98 F Pulse Rate 78 Pulse Rate [ 89 85 Left Radial] Respiratory 18 16 16 Rate Blood Pressure 97/62 Blood Pressure 97/51 99/54 [Right Arm] O2 Sat by Pulse 100 96 94 L Oximetry (%) Laboratory Tests 08/10/16 08/10/16 08/10/16 08:33 08:33 09:34 WBC 8.0 RBC 4.40 Hgb 14.0 Hct 41.5 MCV 94.3 MCHC 33.8 RDW 13.2 Plt Count 190 MPV 9.1 Sodium 141 Potassium 4.1 Chloride 106 Carbon Dioxide 26 Anion Gap 9 BUN 14 Creatinine 0.7 Creat Clearance w eGFR > 60 Random Glucose 78 Calcium 8.4 L Total Bilirubin 0.4 D AST 14 L ALT 17 Alkaline Phosphatase 61 Creatine Kinase 62 Troponin I < 0.02 Total Protein 6.3 L Albumin 3.3 L Urine Color Yellow Urine Appearance Cloudy Urine pH 5.0 Ur Specific [place] 1.023 Urine Protein 1+ H Urine Glucose (UA) Negative Urine Ketones Negative Urine Blood 3+ H Urine Nitrite Positive Urine Bilirubin Negative Urine Urobilinogen Negative Ur Leukocyte Esterase 1+ H Urine RBC 1183 Urine WBC 39 Ur Epithelial Cells Few Urine Bacteria Many Urine Mucus Many Urine HCG, Qual 08/10/16 09:34 WBC RBC Hgb Hct MCV MCHC RDW Plt Count MPV Sodium Potassium Chloride Carbon Dioxide Anion Gap BUN Creatinine Creat Clearance w eGFR Random Glucose Calcium Total Bilirubin AST ALT Alkaline Phosphatase Creatine Kinase Troponin I Total Protein Albumin Urine Color Urine Appearance Urine pH Ur Specific [place] Urine Protein Urine Glucose (UA) Urine Ketones Urine Blood Urine Nitrite Urine Bilirubin Urine Urobilinogen Ur Leukocyte Esterase Urine RBC Urine WBC Ur Epithelial Cells Urine Bacteria Urine Mucus Urine HCG, Qual Negative U/A noted with many bacteria & + nitrite Assessment: 08/10/16 14:45 R/O UTI Withdrawal sx. Plan: Continue detox Continue keflex
[2016-08-10] MEDS ORDERED: chlordiazePOXIDE HCL 25 MG CAPSULE PO SCH (17:00)
--- NOTE | 2016-08-10 17:30 | EKG ---
Test Reason : Blood Pressure : / mmHG Vent. Rate : 084 BPM Atrial Rate : 084 BPM P-R Int : 154 ms QRS Dur : 088 ms QT Int : 386 ms P-R-T Axes : 058 071 064 degrees QTc Int : 456 ms NORMAL SINUS RHYTHM NORMAL ECG WHEN COMPARED WITH ECG OF 08-AUG-2016 23:07, NO SIGNIFICANT CHANGE WAS FOUND Confirmed by JUNO MAHER MD ([id number]) on 08/10/2016 5:30:41 PM Referred By: Confirmed By:JUNO MAHER MD
[2016-08-10] MEDS ORDERED: METHADONE HCL 5 MG TABLET PO ONE (17:50)
[2016-08-10 18:34] LABS: TROPONIN I < 0.02 ng/ml (0.00-0.05)
[2016-08-10] MEDS ORDERED: PT OWN MED DRAWER 7, Y5N ONE ×2 (21:44→23:56)
[2016-08-10] MEDS ORDERED: traZODone HCL 50 MG TABLET (FP) ONE (21:44)
[2016-08-10] MEDS ORDERED: traZODone HCL 100 MG TABLET (FP) PO SCH (22:00)
[2016-08-11] MEDS: chlordiazePOXIDE 5 MG CAPSULE PO SCH ×4 (00:39→10:46)
[2016-08-11] MEDS ORDERED: PT OWN MED DRAWER 7, Y5N ONE ×2 (06:18→09:02)
[2016-08-11] MEDS: CEPHALEXIN MONOHYDRATE 500 MG CAPSULE (UD) PO SCH ×2 (06:19→11:38)
[2016-08-11 08:14] VITALS: TEMP 98.1
[2016-08-11 09:01] LABS: TROPONIN I < 0.02 ng/ml (0.00-0.05)
[2016-08-11] MEDS ORDERED: METHADONE HCL 5 MG TABLET PO SCH (10:00)
[2016-08-11] MEDS ORDERED: METHADONE HCL 5 MG TABLET PO ONE (10:00)
[2016-08-11 10:45] VITALS: BP 113/60; PULSE 76
--- NOTE | 2016-08-11 14:30 | DS ---
Physical Exam: SUBJECTIVE: Patient seen and examined at bedside complains of dizziness which has improved from yesterday OBJECTIVE: Vital Signs Period Temp Pulse Resp BP Sys/Avina Pulse Ox Last 24 Hr 97.9 F-98.2 F 67-87 16-20 86-113/46-61 95-98 PHYSICAL EXAM GENERAL: Awake, alert, and fully oriented, in no acute distress. HEAD: Normal with no signs of trauma. EYES: Pupils equal, round and reactive to light, extraocular movements intact, sclera anicteric, conjunctiva clear. EARS, NOSE, THROAT: Ears normal, nares patent, oropharynx clear without exudates. NECK: Normal range of motion, no JVD, or masses. LUNGS: Breath sounds equal, clear to auscultation bilaterally. No wheezes, and no crackles. No accessory muscle use. HEART: Regular rate and rhythm, normal S1 and S2 without murmur, rub or gallop. ABDOMEN: Soft, nontender, not distended, normoactive bowel sounds, no guarding, no rebound, no masses. No hepatomegaly or splenomegaly. MUSCULOSKELETAL: Normal range of motion at all joints. No bony deformities or tenderness. No CVA tenderness. UPPER EXTREMITIES: warm, well-perfused. No cyanosis. No clubbing. No peripheral edema. LOWER EXTREMITIES: warm, well-perfused. No calf tenderness. No peripheral edema. NEUROLOGICAL: Cranial nerves II-XII intact. Normal speech. global muscle strength 5/5 PSYCHIATRIC: Cooperative. Good eye contact. SKIN: Warm, dry, normal turgor, no rashes or lesions noted, normal capillary refill. LABS Laboratory Results - last 24 hr 08/10/16 08/11/16 16:30 08:00 Creatine Kinase 56 56 Troponin I < 0.02 < 0.02 HOSPITAL COURSE: Date of Admission:08/10/16 Date of Discharge: 08/11/16 25F presented from [facility] detox facility after she had a syncopal event while standing in line at the pharmacy at the rehab facility rto recieve her medications. She was being detoxed from heroin and alcohol and was on a librium and methadone taper. She was worked up with a head CT and cardiac enzymes which were all negative. She was placed on telemetry for cardiac monitoring and the strip did not show any cardiac events overnight. She was also found to have a UTI and was given one dose of IV ceftriaxone and then started on keflex. Willfollow up culture and sensitivities and will call the patient if there is a need to change the antibiotics. Stable for discharge back to [facility] Minutes to complete discharge: 45 Discharge Summary Reason For Visit: CLOSED HEAD INJURY,SYNCOPE AND COLLAPSE Current Active Problems Alcohol dependence with uncomplicated withdrawal (Acute) Closed head injury (Acute) Opioid dependence with withdrawal (Acute) Substance induced mood disorder (Acute) Syncope and collapse (Acute) ADD (attention deficit disorder) (Chronic) Insomnia (Chronic) MDD (major depressive disorder) (Chronic) Nicotine dependence (Chronic) OCD (obsessive compulsive disorder) (Chronic) Condition: Improved - Instructions Diet, Activity, Other Instructions: follow up with your primary care doctor if you do not have one we will assign one to you you can see Dr. Chi go to [facility] to continue your detox keep yourself well hydrated when changing positions for example from sitting to standing or lying down to sitting up make sure you do so slowly continue the antibiotics for your urinary tract infection for 6 more days-take antibiotics to completion Continue your home medications for OCD anxiety and depression Disposition: TRANSFER ACUTE CARE/OTHER HOSP - Home Medications Comprehensive Discharge Medication List: Ambulatory Orders Bupropion HCl [Wellbutrin Xl] 300 mg PO DAILY #30 tab.er.24h 08/09/16 Trazodone HCl [Desyrel -] 200 mg PO HS 08/09/16 Fluvoxamine Maleate 50 mg PO AM 08/10/16 Fluvoxamine Maleate 100 mg PO HS 08/10/16 Cephalexin Monohydrate [Keflex -] 500 mg PO Q6H #24 capsule 08/11/16 Chlordiazepoxide [Librium -] 10 mg PO [id number] #4 cap MDD 4 tabs 08/11/16 Methadone [Dolophine -] 5 mg PO DAILY #1 tablet MDD 1 tab 08/11/16 Methadone [Dolophine -] 10 mg PO DAILY #1 tablet MDD 1 tablet 08/11/16 This patient is new to me today: No Emergency Visit: Yes ED Registration Date: 08/10/16 Care time: The patient presented to the Emergency Department on the above date and was hospitalized for further evaluation of their emergent condition. Critical Care patient: No - Discharge Referral Referred to [facility] Yes Physician Referral: Tom Chi MD ([facility])
--- NOTE | 2016-08-11 14:42 | PN ---
Teaching Attending Note Name of Resident: Kaiden Valdovinos ATTENDING PHYSICIAN STATEMENT I saw and evaluated the patient. I reviewed the resident's note and discussed the case with the resident. I agree with the resident's findings and plan as documented. SUBJECTIVE: still feels a ittle light headed. no fever or chils, no CP , no fall OBJECTIVE: NAD , AAOx3 CV : RRR Lungs: CTAB ext : no edema ASSESSMENT AND PLAN: 25 y/o lady with h/o polysubstance abuse who presented with syncopal episode from [facility] 1- Syncope : likely vasovagal, vs orthostatic hypotension . Orthostatic VS are nl here . received hydration meds like libriuma nd methadone can cause light headedness no further w/u indicated 2- UTI/simple cystitis : no signs of complicated UTI or sepsis cont keflex fro total of 3-5 days. nela follow on urine cx fro sensitivity
[2016-08-11] MEDS ORDERED: chlordiazePOXIDE 5 MG CAPSULE PO SCH (23:00)
[2016-08-12] MEDS ORDERED: METHADONE HCL 10 MG TABLET PO SCH (10:00)
[2016-08-13] MEDS ORDERED: METHADONE HCL 10 MG TABLET PO SCH (10:00)
[2016-08-13] MEDS ORDERED: METHADONE HCL 5 MG TABLET PO SCH (10:00)
[2016-08-14] MEDS ORDERED: METHADONE HCL 5 MG TABLET PO SCH (10:00)
== END 2016-08-11 14:38 | disposition other institution (70) ==
LOC: JER 07:25 → JERBED 11:31 → J4W 15:46
PROVIDERS: ADMIT Internal Medicine; ATTEND Internal Medicine
PROC: 3E03329 Introduction of Other Anti-infective into Peripheral Vein, Percutaneous Approach (ICD-10-PCS; principal; 2016-08-10)
PROC: 3E0337Z Introduction of Electrolytic and Water Balance Substance into Peripheral Vein, Percutaneous Approach (ICD-10-PCS; 2016-08-10)
DX: R55 Syncope and collapse (principal); S09.90XA Unspecified injury of head, initial encounter; F11.20 Opioid dependence, uncomplicated; F10.20 Alcohol dependence, uncomplicated; F42.9 Obsessive-compulsive disorder, unspecified; F90.9 Attention-deficit hyperactivity disorder, unspecified type; J45.909 Unspecified asthma, uncomplicated; N39.0 Urinary tract infection, site not specified; Z87.442 Personal history of urinary calculi; W18.39XA Other fall on same level, initial encounter; Y93.9 Activity, unspecified; Y92.239 Unspecified place in hospital as the place of occurrence of the external cause
CPT/HCPCS: 36415; 70450-TC; 71010-TC; 72125-TC; 80053; 81003; 81015; 82550; 84484; 84703; 85027; 87086; 87186; 93005; 93010; 99285-25; G0378

== ENCOUNTER 2016-08-11 15:19 | Inpatient (IN) | payer OTHER ==
[2016-08-11 15:44] VITALS: BMI 25.1
--- NOTE | 2016-08-11 16:15 | HP ---
SWATI LAKHANI Rehab Assess/Revision - Vital signs Vital Signs: Vital Signs Period Temp Pulse Resp BP Sys/Avina Pulse Ox Last 24 Hr 97.8 F 81 18 82/51
[2016-08-11] MEDS ORDERED: MAG HYDROX/AL HYDROX/SIMETH 30 ML UNIT-DOSE CUP PO PRN (16:18)
[2016-08-11] MEDS ORDERED: LOPERAMIDE HCL 2 MG CAPSULE PO PRN (16:18)
[2016-08-11] MEDS ORDERED: IBUPROFEN 400 MG TABLET (FP) PO PRN (16:18)
[2016-08-11] MEDS ORDERED: NICOTINE POLACRILEX 4 MG GUM BC PRN (16:18)
[2016-08-11] MEDS ORDERED: ACETAMINOPHEN 325 MG TABLET (FP) PO PRN (16:18)
[2016-08-11] MEDS ORDERED: MAGNESIUM HYDROX 2400MG/30ML ORAL SUSPENSION 30 ML CUP PO PRN (16:18)
[2016-08-11] MEDS ORDERED: chlordiazePOXIDE HCL 25 MG CAPSULE PO PRN (16:18)
[2016-08-11] MEDS ORDERED: guaiFENesin/D-METHORPHAN HB 10 ML UNIT-DOSE CUPS PO PRN (16:18)
[2016-08-11] MEDS ORDERED: P-EPHED 60MG/TRIPROLIDI 2.5MG TABLET PO PRN (16:18)
[2016-08-11] MEDS ORDERED: diphenhydrAMINE HCL 50 MG CAPSULE PO PRN (16:18)
[2016-08-11] MEDS ORDERED: MENTHOL/PHENOL 1 EACH UD MM PRN (16:18)
[2016-08-11] MEDS ORDERED: MAGNESIUM CITRATE 300 ML BOTTLE PO PRN (16:18)
[2016-08-11] MEDS ORDERED: ALBUTEROL SO4 6.7 GM HFA INHALER IH PRN (16:24)
--- NOTE | 2016-08-11 16:33 | PN ---
[facility] Progress Note Note: 25 years old female transferred from [facility] detox to [place], from 08/10/16 - 08/11 for syncope, received methadone 15 mg and last dose librium 15 mg today, return to detox, continue keflex, will seen by psychiatrist for depression 08/12,
[2016-08-11] MEDS: CEPHALEXIN MONOHYDRATE 500 MG CAPSULE (UD) PO SCH ×2 (18:09→23:11)
[2016-08-11] MEDS: THIAMINE HCL 100 MG TABLET (FP) PO SCH (22:19)
[2016-08-11] MEDS: chlordiazePOXIDE HCL 10 MG CAPSULE PO SCH (22:19)
[2016-08-12] MEDS: chlordiazePOXIDE HCL 10 MG CAPSULE PO SCH ×3 (05:23→17:44)
[2016-08-12] MEDS: CEPHALEXIN MONOHYDRATE 500 MG CAPSULE (UD) PO SCH ×4 (05:23→23:28)
[2016-08-12] MEDS ORDERED: METHADONE HCL 10 MG TABLET (FOR DETOX USE ONLY) PO SCH (10:00)
[2016-08-12] MEDS ORDERED: NICOTINE 21 MG/24 HOURS TOPICAL PATCH TD SCH (10:00)
[2016-08-12] MEDS ORDERED: PRENATAL VITAMINS W/ FOLIC ACID TABLET (FP) PO SCH (10:00)
--- NOTE | 2016-08-12 10:02 | PN ---
S Progress Note (SOAP) Subjective: ALERT,IRRITABLE,ANXIOUS,PAIN IN THE BODY,TREMOR Objective: 08/12/16 10:01 Vital Signs Temperature 98.1 F 08/12/16 06:16 Pulse Rate 66 08/12/16 06:16 Respiratory Rate 16 08/12/16 06:16 Blood Pressure 97/54 08/12/16 06:16 O2 Sat by Pulse Oximetry (%) Assessment: 08/12/16 10:02 WITHDRAWAL SYMPTOM Plan: CONTINUE DETOX,DISCHARGE IN AM
--- NOTE | 2016-08-12 15:59 | CONSULT ---
[facility] Psychiatric Consult - Data Date of interview: 08/12/16 Admission source: [facility] Identifying data: Return to [facility] for this 25 y/o female seeking detox treatment for alcohol and heroin dependence.Patient was transferred to [facility] on 08/11/16 for medical care after she fell (from a suspected syncopal episode) while waiting in line for her morning medications.Medically managed for one day and cleared for continuation of detox care at [address] [place] [address].Patient is ,a mother of one,homeless,unemployed and living without any source of income. Substance Abuse History: - Smoking Cessation. Smoking history: Current every day smoker. Have you smoked in the past 12 months: Yes. Aproximately how many cigarettes per day: 20. Hx Chewing Tobacco Use: No. Initiated information on smoking cessation: Yes. 'Breaking Loose' booklet given: 08/08/16. - Substance & Tx. History. Hx Alcohol Use: Yes. Hx Substance Use: Yes. Substance Use Type : Alcohol, Heroin. Hx Substance Use Treatment: Yes (DETOX AND REHAB ). - Substances Abused. Heroin. Route: Inhalation. Frequency: Daily. Amount used: 2 BUNDLES. Age of first use: 20. Date of Last Use: 08/08/16. Alcohol. Route: Oral. Frequency: Daily. Amount used: 12 PACK OF BEER. Age of first use: 14. Date of Last Use: 08/08/16. Data collected prior to transfer to [facility].No changes.Reconfirmed by patient. Medical History: Bronchial asthma.History of appendectomy,cholecystectomy and nephrolithiasis. Psychiatric History: No history of psychiatric hospitalizations.Diagnosed with MDD,OCD,ADD and Anxiety Disorder.Patient is prescribed vyvanse,wellbutrin, trazodone and fluvoxamine.Ms Crespo sees a psychiatrist at the [facility] in [place], [place].She denies history of suicide attempts.No changes from history provided on admission (08/09/16). Physical/Sexual Abuse/Trauma History: Patient denies. Additional Comment: Urine Drug Screen Results: OPI-Opiates, OXY-Oxycodone.Noted. Mental Status Exam - Mental Status Exam Alert and Oriented to: Time, Place, Person Cognitive Function: Good Patient Appearance: Well Groomed Mood: Hopeful, Euthymic Affect: Appropriate, Normal Range Patient Behavior: Appropriate, Cooperative Speech Pattern: Clear, Appropriate Voice Loudness: Normal Thought Process: Goal Oriented Thought Disorder: Not Present Hallucinations: Denies Suicidal Ideation: Denies Homicidal Ideation: Denies Sleep: Fair Appetite: Good Muscle strength/Tone: Normal Gait/Station: Normal Psychiatric Findings - Problem List ([place] 1, 2,3) (1) Alcohol dependence with uncomplicated withdrawal Current Visit: Yes Status: Acute (2) Opioid dependence with withdrawal Current Visit: Yes Status: Acute (3) Nicotine dependence Current Visit: No Status: Chronic (4) Substance induced mood disorder Current Visit: Yes Status: Acute (5) MDD (major depressive disorder) Current Visit: Yes Status: Chronic Comment: Historical diagnosis. (6) ADD (attention deficit disorder) Current Visit: Yes Status: Chronic Comment: Self-report. (7) OCD (obsessive compulsive disorder) Current Visit: No Status: Chronic Comment: Self-report. (8) Syncope and collapse Current Visit: No Status: Acute (9) Insomnia Current Visit: Yes Status: Chronic - Initial Treatment Plan Initial Treatment Plan: Psychoeducation.Detoxification.Met with patient to discuss true history of adherence to [facility] care/medications.Ms Crespo states that she last picked filled scripts in February 2016 (in contrast with statement made to show card writer on 08/10/16 that medications were taken a couple of days prior to S visit).Patient is an unreliable historian.She replies that " I don't need your medications anyway.I have my doctor outside to write my scripts." Observe without medications.Will be resumed by [facility] care providers.
[2016-08-12 21:00] LABS: URINE APPEARANCE SLCLOUDY; URINE BILIRUBIN NEGATIVE (NEGATIVE); URINE COLOR YELLOW; URINE GLUCOSE (UA) NEGATIVE (NEGATIVE); URINE KETONE NEGATIVE (NEGATIVE); URINE LEUK ESTERASE NEGATIVE (NEGATIVE); URINE NITRITE NEGATIVE (NEGATIVE); URINE PROTEIN NEGATIVE (NEGATIVE); URINE UROBILINOGEN NEGATIVE E.U./dl (0.2-1.0)
[2016-08-12 21:06] LABS: URINE BLOOD 2+ (NEGATIVE)
[2016-08-12 21:12] LABS: URINE RBC 557 /hpf (0-3)
[2016-08-12] MEDS: THIAMINE HCL 100 MG TABLET (FP) PO SCH (22:18)
[2016-08-13] MEDS: CEPHALEXIN MONOHYDRATE 500 MG CAPSULE (UD) PO SCH (05:55)
[2016-08-13] MEDS ORDERED: METHADONE HCL 5 MG TABLET (FOR DETOX USE ONLY) PO SCH (06:00)
[2016-08-13 06:31] VITALS: TEMP 97.7
--- NOTE | 2016-08-13 08:00 | PN ---
S Progress Note (SOAP) Subjective: ALERT,NO COMPLAINT Objective: 08/13/16 07:59 Vital Signs Temperature 97.7 F 08/13/16 06:31 Pulse Rate 68 08/13/16 06:31 Respiratory Rate 16 08/13/16 06:31 Blood Pressure 98/59 08/13/16 06:31 O2 Sat by Pulse Oximetry (%) Assessment: 08/13/16 07:59 DETOX COMPLETED,NO WITHDRAWAL SYMPTOM Plan: DISCHARGE TODAY,FOLLOW UP WITH AFTER CARE PROGRAM ARRANGEMENT
--- NOTE | 2016-08-13 08:05 | DS ---
[facility] Detox Discharge Summary Admission Date: 08/11/16 Discharge Date: 08/13/16 - History Present History: Alcohol Dependence, Opioid Dependence Additional Comments: FOLLOW UP WITH AFTER CARE PROGRAM ARRANGEMENT Pertinent Past History: NICOTINE DEPENDENCE - Physical Exam Results Vital Signs: Vital Signs Temperature 97.7 F 08/13/16 06:31 Pulse Rate 68 08/13/16 06:31 Respiratory Rate 16 08/13/16 06:31 Blood Pressure 98/59 08/13/16 06:31 O2 Sat by Pulse Oximetry (%) Pertinent Admission Physical Exam Findings: WITHDRAWAL SYMPTOM - Treatment Hospital Course: Detox Protocol Followed, Detoxed Safely, Responded well, Discharged Condition Good, Rehab Referral Accepted Patient has Accepted a Rehab Referral to: [facility] - Medication Discharge Medications: Ambulatory Orders Bupropion HCl [Wellbutrin Xl] 300 mg PO DAILY #30 tab.er.24h 08/09/16 Trazodone HCl [Desyrel -] 200 mg PO HS 08/09/16 Fluvoxamine Maleate 50 mg PO AM 08/10/16 Fluvoxamine Maleate 100 mg PO HS 08/10/16 Cephalexin Monohydrate [Keflex -] 500 mg PO Q6H #24 capsule 08/11/16 - Diagnosis (1) Alcohol dependence with uncomplicated withdrawal Current Visit: Yes Status: Acute (2) Opioid dependence with withdrawal Current Visit: Yes Status: Acute (3) Substance induced mood disorder Current Visit: Yes Status: Acute (4) ADD (attention deficit disorder) Current Visit: Yes Status: Chronic (5) MDD (major depressive disorder) Current Visit: Yes Status: Chronic (6) Syncope and collapse Current Visit: No Status: Acute (7) Nicotine dependence Current Visit: No Status: Chronic (8) OCD (obsessive compulsive disorder) Current Visit: No Status: Chronic (9) UTI (urinary tract infection) Current Visit: Yes Status: Acute - AMA Did Patient Leave Against Medical Advice: No
[2016-08-13 09:43] VITALS: BP 99/62; PULSE 73
== END 2016-08-13 09:05 | disposition home or self-care (01) | DRG 773 ==
LOC: YASAS 15:19 → Y6N 16:34
PROVIDERS: ADMIT Internal Medicine Addiction Medicine; ATTEND Internal Medicine Addiction Medicine
PROC: HZ2ZZZZ Detoxification Services for Substance Abuse Treatment (ICD-10-PCS; principal; 2016-08-13)
DX: F11.23 Opioid dependence with withdrawal (principal); F10.230 Alcohol dependence with withdrawal, uncomplicated; F17.210 Nicotine dependence, cigarettes, uncomplicated; F19.24 Other psychoactive substance dependence with psychoactive substance-induced mood disorder; F90.8 Attention-deficit hyperactivity disorder, other type; F33.9 Major depressive disorder, recurrent, unspecified; F42.9 Obsessive-compulsive disorder, unspecified; N39.0 Urinary tract infection, site not specified; R55 Syncope and collapse; Z59.0 Homelessness
CPT/HCPCS: 81003; 81015